=== PATIENT | female | born 1955 | race Caucasian/White ===

== ENCOUNTER 2021-06-26 14:04 | Inpatient (IN) | payer OTHER ==
[~2021-06-26] VITALS: Ht 170.2 cm; Wt 75.7 kg
[~2021-06-26 14:04] MED LIST: FLEXERIL PO; MEDROLDOSEPACK PO; NORCO 5-325 TA1 EACH PO; PERCOCET 5-3251 EACH PO
[2021-06-26 14:15] VITALS: BP 208/123
[2021-06-26 14:48] LABS: ABSOLUTE BASOPHILS 0.1 thou/uL (0.0-0.2); ABSOLUTE EOSINOPHILS 0.1 thou/uL (0.0-0.7); ABSOLUTE LYMPHOCYTES 2.5 thou/uL (0.8-5.3); ABSOLUTE MONOCYTES 0.9 thou/uL (0.0-1.2); ABSOLUTE NEUTROPHILS 6.4 thou/uL (1.6-8.1); BASOPHILS 1.2 %; EOSINOPHILS 0.8 %; HEMATOCRIT 43.9 % (37.0-47.0); HEMOGLOBIN 14.4 gm/dL (12.0-15.0); LYMPHOCYTES 25.2 %; MCH 31.2 pg (26.0-34.0); MCHC 32.7 g/dL (28.0-37.0); MCV 95.4 fL (80.0-100.0); MONOCYTES 8.8 %; MPV 8.3 fl. (7.2-11.1); NUCLEATED RBCS 0 /100WBC; PLATELET COUNT* 238 thou/uL (150-400); RDW-CV 14.7 % (10.5-14.5)
[2021-06-26 14:52] LABS: CALCIUM 6.7 mg/dL (8.5-10.1); CREATININE 0.7 mg/dL (0.6-1.3); POTASSIUM 3.2 mmol/L (3.5-5.1)
[2021-06-26 14:54] LABS: URINE BILIRUBIN NEGATIVE (Negative); URINE BLOOD TRACE (Negative); URINE COLOR YELLOW; URINE GLUCOSE-RANDOM NEGATIVE (Negative); URINE KETONES NEGATIVE (Negative); URINE LEUKOCYTES-REFLEX NEGATIVE (Negative); URINE PROTEIN 1+ (Negative); URINE SPECIFIC GRAVITY 1.025 (1.005-1.030); URINE UROBILINOGEN 0.2 E.U./dl (0.2-1.0)
[2021-06-26 14:57] LABS: ALBUMIN 2.6 g/dL (3.4-5.0); TOTAL BILIRUBIN 0.2 mg/dL (<0.1-1.0); TOTAL PROTEIN 5.6 g/dL (6.4-8.2)
[2021-06-26 14:57] LABS: URINE CLARITY SL HAZY; URINE NITRITE-REFLEX POSITIVE (Negative)
[2021-06-26 15:01] LABS: CRYSTALS None Seen /LPF (None Seen); HYALINE CASTS 0-3 Few /LPF (None Seen); MUCUS None Seen strn/LPF (None Seen); SQUAMOUS >10 Many /LPF (0-3); URINE WBC-REFLEX 0-5 Rare /HPF (0-5)
[2021-06-26 15:02] LABS: BACTERIA-REFLEX >30 Many /HPF (None Seen); URINE RBC 0-2 Rare /HPF (0-2)
[2021-06-26 16:31] VITALS: BP 182/114
[2021-06-26 19:37] VITALS: BP 186/107
[2021-06-26 20:00] VITALS: BP 191/121
[2021-06-27] VITALS (7 sets, daily range): BP systolic 144–181; BP diastolic 78–106
[2021-06-27 03:57] LABS: HEMATOCRIT 44.2 % (37.0-47.0); HEMOGLOBIN 14.5 gm/dL (12.0-15.0); MCH 31.4 pg (26.0-34.0); MCHC 32.9 g/dL (28.0-37.0); MCV 95.4 fL (80.0-100.0); MPV 8.3 fl. (7.2-11.1); RBC 4.63 mil/uL (4.20-5.00); WBC 7.8 thou/uL (4.0-11.0)
[2021-06-27 04:25] LABS: ALBUMIN 2.9 g/dL (3.4-5.0); ALKALINE PHOSPHATASE 99 U/L (46-116); ANION GAP 5 mmol/L (7-16); BUN 12 mg/dL (7-18); CALCIUM 7.8 mg/dL (8.5-10.1); CHLORIDE 99 mmol/L (98-107); CHOLESTEROL 170 mg/dL (<200); CO2 29 mmol/L (21-32); CREATININE 0.9 mg/dL (0.6-1.3); GLUCOSE 130 mg/dL (70-99); HDL CHOLESTEROL 44 mg/dL (>40); LDL CHOLESTEROL 111 mg/dL (<100); MAGNESIUM 1.8 mg/dL (1.8-2.4); SGOT 25 U/L (15-37); SGPT 63 U/L (30-65); SODIUM 133 mmol/L (136-145); TC:HDL 3.9 Ratio (Not establshd); TOTAL BILIRUBIN 0.3 mg/dL (<0.1-1.0); TOTAL PROTEIN 6.5 g/dL (6.4-8.2); TRIGLYCERIDE 79 mg/dL (<150); VLDL 16 mg/dL (<40)
[2021-06-27 04:33] LABS: POTASSIUM 4.4 mmol/L (3.5-5.1)
[2021-06-27 04:34] LABS: SERUM ASSESSMENT CLEAR
--- NOTE | 2021-06-27 10:21 | EKG ---
[place] [address] ELECTROCARDIOGRAM REPORT Name: EMERALD MALDONADO Room: [address] IN ..#: [id number] Admission: 06/26/21 Attend Phys: Rhiannon Stafford, Discharge: Date of : 57 Date of Service: 06/26/21 1411 Report #: [id number] THIS REPORT FOR: //name// [facility] ED Test Date: 2021-06-26 Test Time: 14:11:04 Pat Name: EMERALD MALDONADO Department: Room: [facility] Gender: F Reading Tutor: WELDON : 1955 Requested By: [place] Order Number: [id number] MD: Dion Gonzales Measurements Intervals [place] Rate: 102 P: 49 IN: 158 QRS: 61 QRSD: 86 T: 75 QT: 368 QTc: 480 Interpretive Statements Sinus tachycardia Left atrial enlargement Borderline prolonged QT interval Baseline wander in lead(s) II,III,aVF,V1,V2,V3,V4,V5,V6 No previous ECG available for comparison Electronically Signed On 06-27-2021 10:21:03 MAGNETIC LOCATER by Dion Gonzales [email or web address] <ELECTRONICALLY SIGNED> By: Doreen Gonzales MD, FACC 06/27/21 1021 10 10 Droeen Gonzales MD, [facility] /EPI
[2021-06-28] VITALS: BP 155/77
[2021-06-28 05:00] VITALS: BP 161/91
[2021-06-28 08:12] VITALS: BP 161/100
[2021-06-28 11:30] VITALS: BP 144/73
--- NOTE | 2021-06-28 12:55 | CARDNUC ---
[place] [address] CARDIAC NUCLEAR IMAGING REPORT Name: JOELEMERALD Guero Room: [address] IN [facility]#: [id number] Admission: 06/26/21 Attend Phys: Rhiannon Stafford, Discharge: Date of : 57 Date of Service: 06/28/21 1255 Report #: [id number] THIS REPORT FOR: cc: FAM - No family physician/PCP FAM - No family physician/PCP Sarath Rodgers MD ~ APPROVED REPORT Study performed: 06/28/2021 09:15:30 Indication: Chest pain, Dyspnea Patient Location: In-Patient Stress Nurse: Nina Choe RN Ht: 5 ft 7 in Wt: 150 lbs BSA: 1.79 m2 BMI: 23.49 Medical History Medical History: HTN Medications: lisinopril, labetaolol, asa, ntg Allergies: morphine Cardiac Risk Factors: Age, Current Smoker, HTN, FHX of CAD Exercise History: Sedentary Resting Data Rest SPECT myocardial perfusion imaging was performed in supine position 45 minutes following the intravenous injection of 10.3 mCi of Tc-99m Sestamibi. Time of rest injection: 07:50 The images were gated to evaluate regional wall motion and calculate left ventricular ejection fraction. Administration Route: IV Administration Site: Left AC Pharmacologic Stress Pharmacologic stress test was performed by injecting Regadenoson 0.4 mg IV push over 10-15 seconds immediately followed by the intravenous injection of 33.0 mCi of Tc-99m Sestamibi. Time of stress injection: 929 Administration Route: IV Administration Site: Right Wrist Heart Rate at time of stress injection: 112 bpm. Gated Stress SPECT was performed 40 minutes [place] [address] CARDIAC NUCLEAR IMAGING REPORT Name: EMERALD MALDONADO Room: [address]#: [id number] Admission: 06/26/21 Attend Phys: Rhiannon Stafford, Discharge: Date of : 57 Date of Service: 06/28/21 1255 Report #: [id number] The images were gated to evaluate regional wall motion and calculate left ventricular ejection fraction. Stress Test Details Stress Test: Pharmacologic stress testing performed using 0.4 mg of regadenoson per 5 mL given IV over 10 seconds. HR Max Heart Rate (APMHR): 156 bpm Resting HR: 97 bpm Target HR (85% APMHR): 132 bpm Max HR Achieved: 112 bpm % of APMHR: 71 Recovery HR: 110 bpm BP Resting BP: 154/92 mmHg Max BP: 168/99 mmHg Recovery BP: 165/96 mmHg ECG Resting ECG: Sinus Rhythm Stress ECG: Sinus Rhythm ST Change: Non-ischemic Clinical Reason for Termination: Completed protocol Study Quality Study: Good Study Data Post stress, the left ventricular ejection was 45%.. SSS: 7 SRS: 6 SDS: 3 TID = 1.00. Perfusion There is a medium area of moderately reduced uptake in the entire segment of the inferior wall which is seen on the stress images and improves on the resting images. This area is hypokinetic and is most consistent with ischemia. Wall Motion Mildly decreased left ventricular systolic function. Nuclear Conclusion ECG Findings: [place] [address] CARDIAC NUCLEAR IMAGING REPORT Name: EMERALD MALDONADO Room: [address] IN [facility]#: [id number] Admission: 06/26/21 Attend Phys: Rhiannon Stafford, Discharge: Date of : 57 Date of Service: 06/28/21 1255 Report #: [id number] Clinical Findings: non-diagnostic Nuclear Findings: positive for ischemia Exercise Capacity: not assessed Left Ventricular Function: abnormal There is a reversible inferior wall defect, consistent with ischemia. There is mild segmental LV dysfunction. <ELECTRONICALLY SIGNED> By: Sarath Rodgers MD 06/28/21 1255 1255 Sarath Rodgers MD /INF
[2021-06-28 15:00] VITALS: BP 169/96
--- NOTE | 2021-06-28 16:03 | 2DMMODE ---
[place] [address] 2 D/M-MODE ECHOCARDIOGRAM Name: ANDRE MALDONADO Guero Room: [address] IN [employer]#: [id number] Admission: 06/26/21 Attend Phys: Rhiannon Stafford, Discharge: Date of : 57 Date of Service: 06/28/21 1603 Report #: [id number] THIS REPORT FOR: cc: FAM - No family physician/PCP FAM - No family physician/PCP Gautam Dubon MD [facility] ~ APPROVED REPORT Study performed: 06/28/2021 15:32:43 EXAM: Comprehensive 2D, Doppler, and color-flow Echocardiogram Patient Location: Out-Patient BSA: 1.79 HR: 98 bpm BP: 161/100 mmHg Other Information Study Quality: Good Indications Chest Pain 2D Dimensions IVSd: 12.07 (7-11mm) LVOT Diam: 20.25 (18-24mm) LVDd: 48.56 mm PWd: 12.31 (7-11mm) Ascending Ao: 30.91 (22-36mm) LVDs: 40.34 (25-40mm) Aortic Root: 31.46 mm Volumes Left Atrial Volume (Systole) LA ESV Index: 22.80 mL/m2 Aortic Valve AoV Peak Jack.: 1.61 m/s AO Peak Gr.: 10.41 mmHg LVOT Max P.51 mmHg AO Mean Gr.: 6.04 mmHg LVOT Mean P.96 mmHg LVOT Max V: 1.06 m/s AO V2 VTI: 23.55 cm LVOT Mean V: 0.63 m/s YESICA (VTI): 2.16 cm2 LVOT V1 VTI: 15.80 cm Mitral Valve E/A Ratio: 0.80 [place] [address] 2 D/M-MODE ECHOCARDIOGRAM Name: ANDRE MALDONADO Room: [address] IN [facility]#: [id number] Admission: 06/26/21 Attend Phys: Rhiannon Stafford, Discharge: Date of : 57 Date of Service: 06/28/21 1603 Report #: [id number] MV Decel. Time: 142.87 ms MV E Max Jack.: 1.05 m/s MV PHT: 41.43 ms MVA (PHT): 5.31 cm2 TDI E/Lateral E': 6.18 E/Medial E': 7.00 Medial E' Jack.: 0.15 m/s Lateral E' Jack.: 0.17 m/s Pulmonary Valve PV Peak Jack.: 0.81 m/s PV Peak Gr.: 2.62 mmHg Tricuspid Valve RAP Estimate: 5.00 mmHg TR Peak Gr.: 34.00 mmHg RVSP: 39.00 mmHg PA Pressure: 39.00 mmHg Left Ventricle Left ventricle is mildly dilated. There is global hypokinesis of the left ventricle. Mild concentric left ventricular hypertrophy. Left ventricular systolic function is severeky decreased. LVEF is 25-30%. This study is not technically sufficient to allow evaluation of the LV diastolic function. Right Ventricle The right ventricle is normal size. The right ventricular systolic function is normal. Atria The left atrium size is normal. The right atrium size is normal. Aortic Valve Mild aortic valve sclerosis. Mild aortic regurgitation. There is no aortic valvular stenosis. Mitral Valve Mild mitral annular calcification. The mitral valve is normal in structure. Mild mitral regurgitation. No evidence of mitral valve stenosis. Tricuspid Valve The tricuspid valve is normal in structure. Mild tricuspid regurgitation. estimated pa pressure 45 [place] [address] 2 D/M-MODE ECHOCARDIOGRAM Name: ANDRE MALDONADO Room: [address]#: [id number] Admission: 06/26/21 Attend Phys: Rhiannon Stafford, Discharge: Date of : 57 Date of Service: 06/28/21 1603 Report #: [id number] Pulmonic Valve The pulmonary valve is normal in structure. There is no pulmonic valvular regurgitation. Great Vessels The aortic root is normal in size. IVC is normal in size and collapses >50% with inspiration. Pericardium There is no pericardial effusion. <Conclusion> Left ventricle is mildly dilated. Mild concentric left ventricular hypertrophy. LVEF is 25-30%. Mild aortic valve sclerosis. Mild aortic regurgitation. Mild mitral regurgitation. Mild tricuspid regurgitation. estimated pa pressure 45 mm Hg <ELECTRONICALLY SIGNED> By: Gautam Dubon MD, [facility] 06/28/21 1603 1603 1603 Gautam Dubon MD, FACC /INF
[2021-06-28 20:00] VITALS: BP 167/89
[2021-06-29] VITALS (18 sets, daily range): BP systolic 140–168; BP diastolic 71–93
[2021-06-29 05:21] LABS: CALCIUM 8.5 mg/dL (8.5-10.1); CREATININE 1.1 mg/dL (0.6-1.3); POTASSIUM 4.2 mmol/L (3.5-5.1)
--- NOTE | 2021-06-29 07:25 | NST ---
[place] [address] NUCLEAR STRESS TEST Name: ANDRE MALDONADO Room: [address] IN ..#: [id number] Admission: 06/26/21 Attend Phys: Rhiannon Stafford, Discharge: Date of : 57 Date of Service: 06/28/21914 Report #: [id number] THIS REPORT FOR: cc: FAM - No family physician/PCP FAM - No family physician/PCP Sarath Rodgers MD [facility]en griffiths MD [facility] ~ Accession No. : [id number] Patient Name / ID : JOEL Jack / [id number] Exam Date : 06/28/2021 09:15:30 ( Approved ) Study Comment : Sex / Age : F / 65Y Creator : Haley Martel Dictator : [employer] Consultant : [employer] Operator : Sarath Rodgers MD Approver2 : Report Date : 06/28/2021 10:14:24 My Comment : APPROVED REPORT Study performed: 06/28/2021 09:15:30 Indication: Chest pain, Dyspnea Patient Location: In-Patient Stress Nurse: Nina Choe RN Ht: 5 ft 7 in Wt: 150 lbs BSA: 1.79 m2 BMI: 23.49 Medical History Medical History: HTN Medications: lisinopril, labetaolol, asa, ntg Allergies: morphine Cardiac Risk Factors: Age, Current Smoker, HTN, FHX of CAD Exercise History: Sedentary Resting Data Rest SPECT myocardial perfusion imaging was performed in supine position 45 minutes following the intravenous injection of 10.3 mCi of Tc-99m Sestamibi. Time of rest injection: 07:50 The images were gated to evaluate regional [place] [address] NUCLEAR STRESS TEST Name: ANDRE MALDONADO Room: [address]#: [id number] Admission: 06/26/21 Attend Phys: Rhiannon Stafford, Discharge: Date of : 57 Date of Service: 06/28/21 0915 Report #: [id number] ventricular ejection fraction. Administration Route: IV Administration Site: Left AC Pharmacologic Stress Pharmacologic stress test was performed by injecting Regadenoson 0.4 mg IV push over 10-15 seconds immediately followed by the intravenous injection of 33.0 mCi of Tc-99m Sestamibi. Time of stress injection: 929 Administration Route: IV Administration Site: Right Wrist Heart Rate at time of stress injection: 112 bpm. Gated Stress SPECT was performed 40 minutes after stress injection. The images were gated to evaluate regional wall motion and calculate left ventricular ejection fraction. Stress Test Details Stress Test: Pharmacologic stress testing performed using 0.4 mg of regadenoson per 5 mL given IV over 10 seconds. HR Max Heart Rate (APMHR): 156 bpm Resting HR: 97 bpm Target HR (85% APMHR): 132 bpm Max HR Achieved: 112 bpm % of APMHR: 71 Recovery HR: 110 bpm BP Resting BP: 154/92 mmHg Max BP: 168/99 mmHg Recovery BP: 165/96 mmHg ECG Resting ECG: Sinus Rhythm Stress ECG: Sinus Rhythm ST Change: Non-ischemic Clinical Reason for Termination: Completed protocol Study Quality Study: Good Study Data Post stress, the left ventricular ejection was 45%.. SSS: 7 SRS: 6 SDS: 3 [place] [address] NUCLEAR STRESS TEST Name: ANDRE MALDONADO Room: [address]#: [id number] Admission: 06/26/21 Attend Phys: Rhiannon Stafford, Discharge: Date of : 57 Date of Service: 06/28/21 0915 Report #: [id number] TID = 1.00. Perfusion There is a medium area of moderately reduced uptake in the entire segment of the inferior wall which is seen on the stress images and improves on the resting images. This area is hypokinetic and is most consistent with ischemia. Wall Motion Mildly decreased left ventricular systolic function. Nuclear Conclusion ECG Findings: negative for ischemia Clinical Findings: non-diagnostic Nuclear Findings: positive for ischemia Exercise Capacity: not assessed Left Ventricular Function: abnormal There is a reversible inferior wall defect, consistent with ischemia. There is mild segmental LV dysfunction. By: 0915 0719 Sarath Rodgers MD /LOPEZ
--- NOTE | 2021-06-29 09:02 | CON ---
[address] [address] CONSULTATION Name: ANDRE MALDONADO Room: [address] IN M.R.#: [id number] Admission: 06/26/21 Attend Phys: Rhiannon Stafford MD Discharge: Date of : 57 Report #: [id number] THIS REPORT FOR: cc: FAM - No family physician/PCP FAM - No family physician/PCP Doreen Gonzales MD [facility] ~ DATE OF CONSULTATION: 06/27/2021 CARDIOLOGY CONSULTATION HISTORY OF PRESENT ILLNESS: I was asked by the ER physician's higher level teaching assistant and Dr. Rhiannon Stafford to see this 65-year-old white female in Cardiology consultation for evaluation of chest pain with minimally elevated troponins. This lady came to the Emergency Room yesterday evening with chest pain. She had had chest pain for several days on and off. Yesterday, she had it on and off all day long, it was occurring every 5 minutes she said, it would last 1-1/2 minutes at a time. She described it as a tightness. It was in her left lower chest below her breast. There was some shortness of breath with it. There was no nausea, vomiting or diaphoresis with it. She said she did have some radiation of the pain into her right back. She does have chronic back pain, however. She did take aspirin on the way to the ER 325 mg. She is not having any other chest pain today. It has gotten better since she came to the hospital. She was found to have bilateral lower lobe infiltrates that are nonconsolidating consistent with pneumonia. She has had 4 different troponins done. The initial one was 108 at 1417 yesterday. Her next one was 136 at 1633, then, last night at 2017, it was 121 and her troponin at 0320 this morning was 103. Note, these are the new super sensitive or high sensitive troponins and when compared to the old numbers, they would all be in the 0.1 range. She did complain of some swelling of her right lower extremity and had venous Dopplers that were normal. She had an EKG that showed sinus tachycardia, the rate was 102. There was left atrial enlargement. QT interval was at the upper limits of normal. There were no acute ischemic changes. Her coronary risk factors include hypertension that have been untreated. She also smokes a pack and half today. I told her in no uncertain terms today she had to stop smoking and told her in no uncertain terms today that she needed to get her blood pressure treated. She denies diabetes or high blood pressure, but I believe her blood sugar was mildly elevated on admission. I do not know her lipids. I am not sure they have been drawn. She does have a family history of heart disease and hypertension. REVIEW OF SYSTEMS: Negative except as per the history of present illness. PAST MEDICAL HISTORY: Unremarkable except for the history of hypertension and smoking. SOCIAL HISTORY: She does not [place] [address] CONSULTATION Name: ANDRE MALDONADO Room: [address] IN ..#: [id number] Admission: 06/26/21 Attend Phys: Rhiannon Stafford MD Discharge: Date of : 57 Report #: [id number] PHYSICAL EXAMINATION: GENERAL: She presents as a well-developed, well-nourished white female in no acute distress. VITAL SIGNS: Temperature is 36.2. Pulse was 90 and regular. Blood pressure is 156/92. Her O2 sat was 96% on room air. Note, her blood pressure was quite high in the ER, I believe, her systolic was 200 or more. HEENT: Head is atraumatic. Eyes are clear. NECK: Supple. There is no jugular venous distention or hepatojugular reflux. Thyroid is not enlarged. There is no adenopathy. SKIN: Warm and dry. Mucous membranes are moist. LUNGS: Reveal decreased breath sounds in both bases and somewhat diffusely as well. Additionally, there is an increased expiratory phase. HEART: Revealed somewhat distant first and second heart sounds. There is soft S4. There is no S3. There are no murmurs, rubs, thrills, heaves or gallops. PMI is not displaced. ABDOMEN: Soft, flat, nontender, no palpable masses, no organomegaly. EXTREMITIES: Reveal no cyanosis, clubbing or edema. NEUROLOGIC: The patient has been mentated normally, talked normally, moved all extremities normally. IMPRESSION: 1. Chest pain. 2. Minimally elevated troponins. 3. Pneumonia. 4. Essential hypertension. 5. Smoking. 6. Probable type 2 non-ST segment elevation myocardial infarction that is troponin elevation without true myocardial infarction. RECOMMENDATIONS: I would get a Lexiscan Cardiolite stress test and an echo. I would also check an NT-proBNP. I would put her on aspirin. I would aggressively lower her blood pressure. She is on a fairly good regimen at this point, however. Thank you very much for asking me to see Xin Maldonado. If there are any questions, please feel free to contact me. <ELECTRONICALLY SIGNED> By: Doreen Gonzales MD, [facility] 06/29/21 0902 0847 [id number]. Dion Gonzales MD, GREGORIO /nt
[2021-06-29 09:48] LABS: HEMATOCRIT 43.8 % (37.0-47.0); HEMOGLOBIN 14.3 gm/dL (12.0-15.0); MCHC 32.6 g/dL (28.0-37.0); MCV 95.1 fL (80.0-100.0); MPV 8.9 fl. (7.2-11.1); RBC 4.6 mil/uL (4.20-5.00); RDW-CV 15.1 % (10.5-14.5); WBC 10.2 thou/uL (4.0-11.0)
--- NOTE | 2021-06-29 14:04 | CARD ---
[address] [address] CARDIAC CATH REPORT Name: ANDRE MALDONADO Room: [address] IN [facility]#: [id number] Admission: 06/26/21 Attend Phys: Rhiannon Stafford MD Discharge: Date of : 57 Report #: [id number] THIS REPORT FOR: cc: FAM - No family physician/PCP FAM - No family physician/PCP Gautam Dubon MD [facility] ~ APPROVED REPORT Study performed: 06/29/2021 10:40:56 Patient Details Patient Status: In-Patient Room #: Event Personnel Gautam Dubon, Risk Management Analyst; Kaylynn Hess RN; Oli Delong RTR, Scrub; Sienna Ugalde RTR, Monitor Procedures Performed Access- Right Femoral Artery, LHC w/wo Coronaries, Hemostasis- Mynx Indication Dyspnea, CardiomyopathyPositive stress test, Chest pain Risk Factors Arterial Hypertension Procedure Narrative The patient was brought electively to the Cardiac Catheterization Laboratory and was prepped and draped in a sterile manner. The right femoral was infiltrated with 2% Lidocaine subcutaneous anesthesia. IV conscious sedation was used throughout procedure with appropriate monitoring and was performed in the presence of a registered nurse who was an independent trained observer other than the physician performing the procedure. A 6 Fr 23 cm Bright Tip sheath was inserted into the right femoral artery. Coronary angiography was performed using coronary diagnostic catheters. The right coronary system was accessed and visualized with a Diagnostic 6 Fr JR 4 catheter. The left coronary system was accessed and visualized with a Diagnostic 6 Fr JL 4 catheter. The left ventricle was accessed and visualized with a Diagnostic 6 Fr Pigtail catheter. Left ventricular/Aortic Valve gradient assessed via catheter pullback. Left ventriculogram was performed in PADILLA projection. Pre-demployment femoral angiogram was performed . Closure device was deployed with a 6 Fr 6/7 [place] [address] CARDIAC CATH REPORT Name: ANDRE MALDONADO Room: [address] IN [facility].#: [id number] Admission: 06/26/21 Attend Phys: Rhiannon Stafford MD Discharge: Date of : 57 Report #: [id number] Control. The patient tolerated the procedure well and there were no complications associated with the procedure. There was no hematoma. Patient was noted to have PAD requiring use of a Wholey wire to advance beyond the common iliac artery. Intraoperative Conscious Sedation Sedation start time: 12:17 Case end Time: 12:47 Versed 2.0 mg Fluoro Time: 3.5 minutes Dose: DAP 65162 cGycm2 375 mGy Contrast Type and Amount: Visipaque 95 ml Coronary Angiography The patient's coronary anatomy is right dominant. Diagnostic Cath Left Main 0% stenosis LAD 60% mid stenosis Circumflex 70% proximal stenosis OM1 large vessel with 60% proximal stenosis Right Coronary Chronically 100% occluded proximally and filled distally by retrograde collaterals from the left coronary artery. Left Ventriculography The left ventricular ejection fraction is estimated to be 30-35%. Left ventricular wall motion abnormalities are present. There is no mitral insufficiency. Severe hypokinesis noted of the inferior wall. Hemodynamics The aortic pressure is 154/83 mmHg with a mean of 112 mmHg. The left ventricular pressure is 152/19 mmHg with a mean of mmHg. The left ventricular end diastolic pressure is 30 mmHg. There was no gradient across the aortic valve upon pullback. Pullback from the left ventricle to the aorta revealed no gradient across the aortic valve. Conclusion 1. 60% stenosis of the mid LAD, and 70% stenosis of the proximal circumflex artery. 2. chronic occlusion of the RCA that filled [place] [address] CARDIAC CATH REPORT Name: ANDRE MALDONADO Guero Room: [address] IN .R.#: [id number] Admission: 06/26/21 Attend Phys: Rhiannon Stafford MD Discharge: Date of : 57 Report #: [id number] 3. LVEF 30-35% 4. PAD Recommendations Aggressive Medical Therapy <ELECTRONICALLY SIGNED> By: Gautam Dubon MD, [facility] 06/29/21 1404 1404 1404David Shon Dubon MD, FACC /INF
[2021-06-30] VITALS: BP 126/56
[2021-06-30 04:00] VITALS: BP 134/59
[2021-06-30 05:13] LABS: ABSOLUTE BASOPHILS 0.1 thou/uL (0.0-0.2); ABSOLUTE LYMPHOCYTES 3.2 thou/uL (0.8-5.3); ABSOLUTE MONOCYTES 1.2 thou/uL (0.0-1.2); ABSOLUTE NEUTROPHILS 6.6 thou/uL (1.6-8.1); BASOPHILS 0.5 %; EOSINOPHILS 0.3 %; HEMOGLOBIN 14.3 gm/dL (12.0-15.0); LYMPHOCYTES 28.9 %; MCH 30.6 pg (26.0-34.0); MCHC 32.5 g/dL (28.0-37.0); MCV 94.1 fL (80.0-100.0); MONOCYTES 10.6 %; MPV 8.6 fl. (7.2-11.1); NUCLEATED RBCS 0 /100WBC; PLATELET COUNT* 262 thou/uL (150-400); POLYS 59.7 %; RBC 4.68 mil/uL (4.20-5.00); RDW-CV 14.9 % (10.5-14.5)
[2021-06-30 06:08] LABS: CALCIUM 8.5 mg/dL (8.5-10.1); CREATININE 1.2 mg/dL (0.6-1.3); POTASSIUM 4.3 mmol/L (3.5-5.1)
[2021-06-30 07:15] VITALS: BP 110/67
[2021-06-30 20:00] VITALS: BP 132/78
[2021-07-01 00:38] VITALS: BP 150/85
[2021-07-01 04:54] VITALS: BP 154/72
[2021-07-01 09:00] VITALS: BP 130/111
[2021-07-01 11:32] VITALS: BP 140/69
[2021-07-01] MEDS ORDERED: SPIRONOLACTONE25 MG PO (12:30)
[2021-07-01] MEDS ORDERED: BAYER CHEWABLE81 MG PO (12:30)
[2021-07-01] MEDS ORDERED: MI-ACID80 MG PO (12:30)
[2021-07-01] MEDS ORDERED: COLACE100 MG PO (12:30)
[2021-07-01] MEDS ORDERED: LASIX 20 MG TAB20 MG PO (12:30)
[2021-07-01] MEDS ORDERED: PREDNISONE 10 M10 MG PO (12:30)
[2021-07-01] MEDS ORDERED: COZAAR100 MG PO (12:30)
[2021-07-01] MEDS ORDERED: MIRALAX17 GM PO (12:30)
[2021-07-01] MEDS ORDERED: METOPROLOL SUCC25 M1 PO (12:30)
[2021-07-01] MEDS ORDERED: IMDUR 30 MG TAB30 M1 PO (12:30)
[2021-07-01] MEDS ORDERED: NEURONTIN 300M300 M2 PO (12:30)
[2021-07-01] MEDS ORDERED: OXYCODONE HCL 55 MG PO (12:30)
[2021-07-01] MEDS ORDERED: CEFDINIR300 MG PO (12:30)
[2021-07-01] MEDS ORDERED: LIPITOR 20 MG T20 M1 PO (12:30)
[2021-07-01 13:30] VITALS: BP 140/69
== END 2021-07-01 14:35 | disposition home or self-care (01) | DRG 280 ==
LOC: M.ERS 14:04 → M.TBA-ER 16:19 → M.2W 16:19 → M.ORTHSURG 19:27 → M.2W 19:29
PROVIDERS: Internal Medicine Cardiovascular Disease; Physician Assistant Medical; Registered Nurse; ADMIT Internal Medicine; ATTEND Internal Medicine
PROC: B211YZZ Fluoroscopy of Multiple Coronary Arteries using Other Contrast (ICD-10-PCS; principal; 2021-06-29)
PROC: 05HC33Z Insertion of Infusion Device into Left Basilic Vein, Percutaneous Approach (ICD-10-PCS; principal; 2021-06-29)
PROC: 4A023N7 Measurement of Cardiac Sampling and Pressure, Left Heart, Percutaneous Approach (ICD-10-PCS; principal; 2021-06-29)
PROC: B41FYZZ Fluoroscopy of Right Lower Extremity Arteries using Other Contrast (ICD-10-PCS; principal; 2021-06-29)
PROC: B215YZZ Fluoroscopy of Left Heart using Other Contrast (ICD-10-PCS; principal; 2021-06-29)
DX: I21.4 Non-ST elevation (NSTEMI) myocardial infarction (principal); J18.9 Pneumonia, unspecified organism; I50.23 Acute on chronic systolic (congestive) heart failure; I16.1 Hypertensive emergency; N39.0 Urinary tract infection, site not specified; E44.1 Mild protein-calorie malnutrition; M48.50XA Collapsed vertebra, not elsewhere classified, site unspecified, initial encounter for fracture; E83.51 Hypocalcemia; E83.42 Hypomagnesemia; F17.210 Nicotine dependence, cigarettes, uncomplicated; E87.6 Hypokalemia; I11.0 Hypertensive heart disease with heart failure; K59.00 Constipation, unspecified; Z20.822 Contact with and (suspected) exposure to COVID-19; I25.5 Ischemic cardiomyopathy; Z88.6 Allergy status to analgesic agent; Z82.49 Family history of ischemic heart disease and other diseases of the circulatory system; Z68.26 Body mass index [BMI] 26.0-26.9, adult